=== PATIENT | male | born 1965 | race Caucasian/White ===

== ENCOUNTER 2020-10-18 07:11 | Emergency (ER) | payer MEDICARE, MEDICAID ==
[~2020-10-18] VITALS: Ht 172.7 cm; Wt 109.1 kg
[2020-10-18] MEDS ORDERED: LIDOcaine 1% 30ml preserv. free vial SQ STA (07:45)
[2020-10-18] MEDS ORDERED: LORazepam 2 mg/ml vial IM ONE (08:30)
--- NOTE | 2020-10-18 08:55 | NUR ---
Pt reporting continued pain despite trigger point injection as well as Ativan IM. Alejandra aware.
--- NOTE | 2020-10-18 09:09 | NUR ---
Additional injection provided in attempt to control pain.
[2020-10-18] MEDS ORDERED: KETAMINE IV ONE (09:10)
[2020-10-18] MEDS ORDERED: NORMAL SALINE IV ONE (09:10)
[2020-10-18] MEDS ORDERED: ketamine 50 mg/ml 10ml vial IV ONE ×2 (09:25→11:10)
[2020-10-18] MEDS ORDERED: ketorolac trometh. 30mg/ml inj. IV ONE (11:20)
[2020-10-18 12:57] VITALS: BP 139/112
[2020-10-18] MEDS ORDERED: OXYC-145 PO (12:57)
== END 2020-10-18 13:03 | disposition home or self-care (01) ==
LOC: ER 07:11
DX: M54.12 Radiculopathy, cervical region (principal); M25.512 Pain in left shoulder; Z98.890 Other specified postprocedural states; Z88.5 Allergy status to narcotic agent; Z79.899 Other long term (current) drug therapy
CPT/HCPCS: 20553; 72125; 96372; 96374; 99285; J1885; J2060

== ENCOUNTER 2022-03-23 11:48 | Emergency (ER) | payer MEDICARE, MEDICAID ==
[~2022-03-23] VITALS: Ht 172.7 cm; Wt 97.7 kg
[~2022-03-23 11:48] MED LIST: OXYC-145 PO
[2022-03-23 11:51] VITALS: BP 149/103
== END 2022-03-23 13:25 | disposition left against medical advice (07) ==
LOC: ER 11:48
DX: M54.9 Dorsalgia, unspecified (principal); Z53.21 Procedure and treatment not carried out due to patient leaving prior to being seen by health care provider

== ENCOUNTER 2024-11-25 14:32 | Day surgery (SDC) | payer MEDICARE, MEDICAID ==
[~2024-11-25] VITALS: Ht 172.7 cm; Wt 108.8 kg
[2024-11-25] VITALS (7 sets, daily range): BP systolic 133–171; BP diastolic 76–91; PULSE 70–88; RESP 12–22; TEMP 98; O2SAT 97–98
[2024-11-25] MEDS ORDERED: ATOR10TA PO (15:13)
[2024-11-25] MEDS ORDERED: GABA-535 PO (15:13)
[2024-11-25] MEDS ORDERED: ALPR2TAB2 PO (15:13)
[2024-11-25] MEDS ORDERED: PROP20TA6 PO (15:13)
[2024-11-25] MEDS ORDERED: PALI3TAB PO (15:13)
[2024-11-25] MEDS ORDERED: OXCA300T4 PO (15:13)
[2024-11-25] MEDS ORDERED: simethicone 40mg/0.6ml oral drops 30ml ONE (17:10)
[2024-11-25] MEDS ORDERED: fentaNYL/PF 50MCG/1 ML 2ML syringe ONE ×2 (17:12→17:21)
[2024-11-25] MEDS ORDERED: diphenhydrAMINE 50 mg/ml inj ONE (17:12)
[2024-11-25] MEDS ORDERED: MIDAZolam 1 MG/ML 5ML VIAL ONE ×2 (17:12→17:25)
== END 2024-11-25 19:05 | disposition home or self-care (01) ==
LOC: GI LAB 14:32
PROVIDERS: ATTEND Internal Medicine Gastroenterology
DX: Z12.11 Encounter for screening for malignant neoplasm of colon (principal); K63.5 Polyp of colon; K64.2 Third degree hemorrhoids
CPT/HCPCS: 45385; 88305; 99153; A4620; C1889; G0500; J1200; J2250; J3010; J7030; Z7512; 99152